=== PATIENT | male | born 1995 | race Two or more races ===

== ENCOUNTER 2019-12-25 21:20 | Emergency (ER) | payer BC, OTHER ==
[~2019-12-25] VITALS: Ht 185.4 cm; Wt 86.2 kg
--- NOTE | 2019-12-25 22:13 | NUR ---
Annalee andre in [facility] - 12/25/19 at 2220 by PERLA Pt amb w/ steady gait to room from [facility] at this time.
--- NOTE | 2019-12-25 23:08 | NUR ---
PT AMBULATORY TO ROOM WITH STEADY GAIT AT THIS TIME.
--- NOTE | 2019-12-25 23:12 | NUR ---
ERP TO BEDSIDE.
--- NOTE | 2019-12-25 23:46 | NUR ---
SUMMARY NOTE FROM 2307: PT SITTING IN GURNEY, CALL LIGHT AND BELONGINGS IN REACH, CONNECTED TO CARDIAC, BP AND O2 MONITORS. PT STATES HE FELT THIS SAME CP A MONTH AGO AND IT WENT AWAY WITHOUT INTERVETION AFTER 2 DAYS. AT THIS TIME HE WAS TESTED FOR COVID AND IT RESULTED NEGATIVE. PT STARTED FEELING CP (SAME PREVIOUS) YESTERDAY.
[2019-12-26] MEDS ORDERED: KETOROLAC 30 MG/1 ML IM ONE
[2019-12-26] MEDS ORDERED: KETOROLAC 30 MG/1 ML ONE (00:02)
--- NOTE | 2019-12-26 00:05 | NUR ---
TASK RN: PT MEDICATED PER MAR, TOLERATED WELL, NAD, VSS, WCTM. DENIES ADDITIONAL NEEDS AT THIS TIME, NO ACUTE CHANGES IN CONDITION.
[2019-12-26 00:27] VITALS: BP 144/81
== END 2019-12-26 00:39 | disposition home or self-care (01) ==
LOC: ED 23:59
DX: R07.89 Other chest pain (principal); R09.1 Pleurisy
CPT/HCPCS: 71046; 93005; 96372; 99283; J1885